=== PATIENT | female | born 1985 | race Caucasian/White ===

== ENCOUNTER 2025-09-17 06:19 | Day surgery (SDC) | payer OTHER, SELFPAY | END 2025-09-17 14:43 | disposition home or self-care (01) | LOC: GI 06:19 | PROVIDERS: ATTENDING PHYSICIAN Internal Medicine | DX: K29.70 Gastritis, unspecified, without bleeding (principal); K21.00 Gastro-esophageal reflux disease with esophagitis, without bleeding; D13.2 Benign neoplasm of duodenum; K22.89 Other specified disease of esophagus; K86.89 Other specified diseases of pancreas | CPT/HCPCS: 43239; 88305; 88342 ==